=== PATIENT | female | born 1960 | race Caucasian/White ===

== ENCOUNTER → 2017-02-22 | Day surgery (SDC) | payer OTHER ==
[2017-02-13 14:03] VITALS: Ht 152.4 cm; Wt 70.5 kg
[~2017-02-22] VITALS: Ht 152.4 cm; Wt 70.5 kg
[~2017-02-22] MED LIST: ATV/1 PO; BUPIVACAINE/EPINEPHRINE 0.25% 1:200,000 30 ML VIAL ONE; BUPR-79 PO; CALC625T PO; DEXAMETHASONE SOD INJ 4 MG/ML VIAL ONE; EpHEDrine SULFATE INJ 50 MG/ML AMP ONE; EpINEphrine INJ 1MG/ML AMP 1 MG/ML AMP ONE; FENTANYL CITRATE INJ 50 MCG/1 ML 2 ML VIAL ONE; FLUO10CA48 PO; KETO10TA PO; LACTATED RINGER'S 1000ML 1,000 ML IV SCH; LIDOCAINE HCL 2% 2 ML VIAL (20MG/ML) ONE; LORAZEPAM PO; MIDAZOLAM HCL 1 MG/ML 2ML VIAL ONE; OMEP20CA59 PO; OMEP40CA41 PO; ONDANSETRON INJ 2 MG/ML 2 ML VIAL IV PRN; ONDANSETRON INJ 2 MG/ML 2 ML VIAL ONE; OXYC-57 PO; OXYCODONE/ACETAMINOPHEN 5-325 TAB PO PRN; PROPOFOL IV EMULSION 10 MG/ML 20 ML VIAL IV ONE; ROPIVACAINE 0.5% 5 MG/ML 30 ML VIAL ONE; SODIUM CHLORIDE 0.9% 1000ML 1,000 ML IV SCH; SODIUM CHLORIDE 0.9% INJ 10 ML VIAL ONE
[2017-02-22] MEDS: CEFAZOLIN 2000 MG/60 ML D5W IV SCH ×2 (10:40→12:07)
--- NOTE | 2017-02-22 11:25 | History & Physical Bridge - [place] ---
H&P Re-Evaluation Bridge Note: I have examined the patient, reviewed the History & Physical and in the interval since the performance of the History & Physical I have noted the following changes of clinical significance: No changes noted
--- NOTE | 2017-02-22 13:13 | Discharge Instructions-SurgCtr ---
Discharge Instructions Date of Service Feb 22, 2017. Visit Reason for Visit: Shoulder Pain, Full Thickness Rotator Cuff Tear Discharge Discharge Diagnosis / Problem: RIGHT SHOULDER EXTERNAL IMPINGEMENT Discharge Goals Goal(s): Decrease discomfort, Improve function Activity Recommendations Activity Limitations: as noted below Lifting Limitations: until after follow-up appointment Exercise/Sports Limitations: until after follow-up appointment Shower/Bathe: tomorrow Anesthesia . Post Anesthesia Instructions: If you have had General Anesthesia or IV Sedation: * Do not drive today. * Resume driving when surgeon permits. * Do not make important decisions or sign legal documents today. * Call surgeon for: 1. Temperature elevations greater than 101 degrees F. 2. Uncontrollable pain. 3. Excessive bleeding. 4. Persistent nausea and vomiting. 5. Medication intolerance (nausea, vomiting or rash). * For nausea and vomiting use only clear liquids such as: tea, soda, bouillon until nausea subsides, then gradually increase diet as tolerated. * If you have any concerns or questions, call your surgeon's office. If physician is unavailable and it is an emergency, call 911 or go to the nearest emergency room. . Instructions / Follow-Up Instructions / Follow-Up MEDICATIONS: * Resume previous medications unless instructed otherwise by your surgeon. * Always take pain medication on a full stomach or with food to avoid upset stomach. * Do not drink alcohol or drive while taking narcotics. * Ibuprofen or Tylenol may be taken if narcotic not needed. SPECIAL CARE INSTRUCTIONS: __ None _X_ Keep extremity elevated and iced x 48 hours; apply ice 20-30 minutes 8-10 times/day. May remove at night. _X_ Sling (WEAR NEEDED FOR COMFORT) __24 hrs/day __ Remove at night __ Shoulder Immobilizer __ 24 hrs/day __ Remove at night _X_ Dressing __ Maintain until seen in office, may shower with plastic over site _X_ Remove dressings in 24-48 hours and then may shower _X_ Cover incisions with band-aids after showering __ Do not remove steri-strips Call physician if chills or temperature rises above 102 degrees or pain unrelieved by prescribed pain medications at . . Diet Recommendations Home Diet: no limitations Fluid Restriction: None Procedures Procedures Performed: Right Shoulder Arthroscopy, Medium Rotator Cuff Repair, Acromioplasty Pending Studies Studies pending at discharge: no Work Instructions Return To Work: after follow-up Lifting Limitations: NO LIFTING WITH RIGHT ARM Medical Emergencies . Who to Call and When: Medical Emergencies: If at any time you feel your situation is an emergency, please call 911 immediately. . Non-Emergent Contact Non-Emergency issues call your: Primary Care Provider Call Non-Emergent contact if: you have a fever, temperature is above 101.5 . . "Provider Documentation" section prepared by Modesto Edwards. .
[2017-02-22 14:03] VITALS: TEMP 36.3
--- NOTE | 2017-02-22 14:10 | Anesthesia Progress Nt - [facility] ---
Anesthesia Post Op Note Date & Time Feb 22, 2017 at 14:10 Vital Signs Pain Intensity: 0 Vital Signs Past 12 Hours Date Time Temp Pulse Resp B/P (MAP) Pulse Ox O2 Delivery O2 Flow Rate FiO2 02/22/17 14:03 36.3 69 14 116/67 (83) 98 Room Air 02/22/17 13:45 107/75 02/22/17 13:42 36.5 02/22/17 13:41 75 23 100 02/22/17 13:41 75 23 02/22/17 13:40 113/71 02/22/17 13:37 111/75 02/22/17 13:36 75 19 112/ 98 02/22/17 13:36 75 19 02/22/17 13:31 74 21 99 02/22/17 13:31 74 21 02/22/17 13:30 104/73 02/22/17 13:26 81 15 106/80 100 02/22/17 13:26 81 15 02/22/17 13:21 76 19 02/22/17 13:21 76 19 100 02/22/17 13:20 110/78 02/22/17 13:16 76 19 02/22/17 13:16 76 19 101/76 100 02/22/17 13:11 81 14 02/22/17 13:11 81 14 113/71 100 02/22/17 13:10 36.5 78 20 113/71 100 Diffusion Mask 6 02/22/17 12:07 0 02/22/17 12:05 108/71 02/22/17 12:02 73 02/22/17 12:02 73 16 99 02/22/17 12:00 125/82 02/22/17 11:59 124/78 02/22/17 11:57 79 02/22/17 11:57 98 8 100 02/22/17 11:52 68 02/22/17 11:52 68 0 97 02/22/17 11:47 71 02/22/17 11:47 70 0 98 02/22/17 11:42 72 0 99 02/22/17 11:42 72 02/22/17 11:37 65 0 98 02/22/17 11:37 65 02/22/17 11:32 65 0 99 02/22/17 11:32 64 02/22/17 11:27 70 02/22/17 11:27 71 0 98 02/22/17 11:22 67 0 98 02/22/17 11:22 67 02/22/17 11:17 67 02/22/17 11:17 67 0 97 02/22/17 11:12 67 02/22/17 11:12 67 0 98 02/22/17 11:07 69 0 97 02/22/17 11:07 70 02/22/17 11:02 67 02/22/17 11:02 67 0 99 02/22/17 10:57 70 0 98 02/22/17 10:57 70 02/22/17 10:52 69 02/22/17 10:52 68 0 98 02/22/17 10:47 70 02/22/17 10:47 70 0 98 02/22/17 10:42 8 02/22/17 10:42 73 8 02/22/17 10:23 36.8 73 18 113/96 (102) 97 Room Air Notes Mental Status: alert / awake / arousable, participated in evaluation Pt Amnestic to Procedure: Yes Nausea / Vomiting: adequately controlled Pain: adequately controlled Airway Patency, RR, SpO2: stable & adequate BP & HR: stable & adequate Hydration State: stable & adequate Anesthetic Complications: no major complications apparent
[2017-02-22 14:14] VITALS: BP 112/75; PULSE 72; O2SAT 100
--- NOTE | 2017-02-22 15:40 | [facility] Post Operative Brief Note ---
Immediate Operative Summary Operative Date Feb 22, 2017. Pre-Operative Diagnosis Right Shoulder Medium Rotator Cuff Tear Post-Operative Diagnosis Same Procedure(s) Performed Right Shoulder Arthroscopy, Medium Rotator Cuff Repair, Acromioplasty Surgeon Dr. Williamson Plaster Mechanic Surgeon(s) Yobany Edwards PA-C Estimated Blood Loss 5 ml Findings as above Specimens Same Complication(s) None Disposition Recovery Room / PACU
--- NOTE | 2017-02-22 19:25 | OPERATIVE REPORT ---
DATE OF OPERATION: 02/22/2017 PREOPERATIVE DIAGNOSIS: Very high grade partial rotator cuff tear of the right shoulder with severe external impingement. POSTOPERATIVE DIAGNOSIS: Severe external impingement without rotator cuff tear. PROCEDURE: A diagnostic arthroscopy with extensive debridement and acromioplasty. SURGEON: Dr. Paolo Williamson. MEDICAID ANALYST: Aden Edwards PA-C, whose assistance was necessary for positioning the arm and helping with instrumentation. ANESTHESIA: General with a right interscalene nerve block. COMPLICATIONS: None. CONDITION: Stable to PACU. INDICATIONS: Christina is a 56-year-old female who works at [employer]. She states she injured her shoulder while at work. She had an MRI which was a very poor quality MRI, which was suggestive of a very high grade partial thickness rotator cuff tear. She was unable to raise her arm when I saw her in the office and she failed a conservative treatment. She was unable to return to work and elected to proceed with a rotator cuff repair. DESCRIPTION OF PROCEDURE: On 02/22/2017, she arrived at [facility] for the above procedure. She was seen in the preoperative holding area and the operative extremity was identified and signed. She was given a preoperative antibiotic and a right interscalene nerve block. She was taken back to the operating room, laid on the table in supine position and put under general anesthesia. She was then put into the beachchair position. The right shoulder was prepped and draped in sterile fashion. Time-out was done and the patient and operative extremity was properly identified. A scope was introduced in the posterior portal. Diagnostic arthroscopy showed no cartilage damage to the humeral head or the glenoid. The biceps tendon was intact and went through a normal size biceps liz mechanism. The supraspinatus, infraspinatus, teres minor, and subscapularis were all checked and intact. An anterior portal was made. A shaver was used to do a debridement of some of the intraarticular structures and the biceps tendon was pulled into the joint without any evidence of tearing or pathology. The scope was then put into the subacromial space. A lateral portal was made. A shaver was used to do a complete subacromial and subdeltoid bursectomy. There was a lot of red and inflamed bursa. An ablator was used to tease the coracoacromial ligament off the undersurface of the acromion and a 5-0 jeffrey was used to complete an acromioplasty of a large Bigliani type 3 acromion. A shaver was used to remove any excess debris and the bursal side of the rotator cuff was examined extensively without evidence of tear. The distal clavicle was also visualized and it did not appear to be arthritic. Time was spent with surgery for any additional pathology and probing the rotator cuff to ensure there were no interstitial tears. No tears of the rotator cuff found. Arthroscopic instruments were removed from the shoulder. Portal sites were closed with 3-0 nylon. She was then placed in a soft dressing and regular arm sling. She was then extubated, transferred to a [facility] and taken to the postanesthesia care unit in stable condition. She tolerated the procedure well. I attest to the content of the Intraoperative Record and any orders documented therein. Any exception s are noted below.
== END | disposition home or self-care (01) ==
LOC: X.SURG 09:59
PROVIDERS: ATTEND Orthopaedic Surgery
DX: M25.811 Other specified joint disorders, right shoulder (principal); Z82.49 Family history of ischemic heart disease and other diseases of the circulatory system; Z83.3 Family history of diabetes mellitus

== ENCOUNTER → 2017-05-10 | Day surgery (SDC) | payer OTHER, BC ==
[2017-05-08 11:23] VITALS: Ht 152.4 cm; Wt 77.3 kg
[~2017-05-10] VITALS: Ht 152.4 cm; Wt 77.3 kg
[~2017-05-10] MED LIST changes: +ATROPINE SULFATE 0.1 MG/ML 5ML SYR IV PRN; +BUPIVACAINE 0.5 % 5 MG/1 ML MPF 30ML VIAL ONE; +BUPIVACAINE 0.5 % 5 MG/1 ML PF 10ML VIAL ONE; -BUPIVACAINE/EPINEPHRINE 0.25% 1:200,000 30 ML VIAL ONE; -DEXAMETHASONE SOD INJ 4 MG/ML VIAL ONE; +EpHEDrine SULFATE INJ 50 MG/ML AMP IV PRN; -EpHEDrine SULFATE INJ 50 MG/ML AMP ONE; -EpINEphrine INJ 1MG/ML AMP 1 MG/ML AMP ONE; +FENTANYL CITRATE INJ 50 MCG/1 ML 2 ML VIAL IV PRN; +HYDROCODONE/ACETAMOPHEN 5/325MG TAB PO PRN; -KETO10TA PO; -LORAZEPAM PO; +METHYLPREDNISOLONE ACETATE 80 MG/ML VIAL ONE; -OMEP20CA59 PO; -ONDANSETRON INJ 2 MG/ML 2 ML VIAL ONE; -OXYCODONE/ACETAMINOPHEN 5-325 TAB PO PRN; -SODIUM CHLORIDE 0.9% INJ 10 ML VIAL ONE
--- NOTE | 2017-05-10 15:46 | Discharge Instructions-SurgCtr ---
Discharge Instructions Date of Service May 10, 2017. Visit Reason for Visit: Right Shoulder Adhesive Capsulitis, Pain Discharge Discharge Diagnosis / Problem: SAME ABOVE Discharge Goals Goal(s): Decrease discomfort, Improve function Activity Recommendations Activity Limitations: as noted below Lifting Limitations: gradually increase as tolerated Exercise/Sports Limitations: gradually increase as tolerated Shower/Bathe: tomorrow Anesthesia . Post Anesthesia Instructions: If you have had General Anesthesia or IV Sedation: * Do not drive today. * Resume driving when surgeon permits. * Do not make important decisions or sign legal documents today. * Call surgeon for: 1. Temperature elevations greater than 101 degrees F. 2. Uncontrollable pain. 3. Excessive bleeding. 4. Persistent nausea and vomiting. 5. Medication intolerance (nausea, vomiting or rash). * For nausea and vomiting use only clear liquids such as: tea, soda, bouillon until nausea subsides, then gradually increase diet as tolerated. * If you have any concerns or questions, call your surgeon's office. If physician is unavailable and it is an emergency, call 911 or go to the nearest emergency room. . Instructions / Follow-Up Instructions / Follow-Up MEDICATIONS: * Resume previous medications unless instructed otherwise by your surgeon. * Always take pain medication on a full stomach or with food to avoid upset stomach. * Do not drink alcohol or drive while taking narcotics. * Ibuprofen or Tylenol may be taken if narcotic not needed. SPECIAL CARE INSTRUCTIONS: __ None _X_ Keep extremity elevated and iced x 48 hours; apply ice 20-30 minutes 8-10 times/day. May remove at night. _X_ Sling (REMOVE AFTER 24 HOURS) __24 hrs/day __ Remove at night __ Shoulder Immobilizer __ 24 hrs/day __ Remove at night __ Dressing __ Maintain until seen in office, may shower with plastic over site __ Remove dressings in 24-48 hours and then may shower __ Cover incisions with band-aids after showering __ Do not remove steri-strips Call physician if chills or temperature rises above 102 degrees or pain unrelieved by prescribed pain medications at . . Diet Recommendations Home Diet: no limitations Fluid Restriction: None Pending Studies Studies pending at discharge: no Work Instructions Return To Work: 3 days (WHEN PAIN IS CONTROLLED ) Medical Emergencies . Who to Call and When: Medical Emergencies: If at any time you feel your situation is an emergency, please call 911 immediately. . Non-Emergent Contact Non-Emergency issues call your: Primary Care Provider Call Non-Emergent contact if: you have a fever, temperature is above 101.5 . . "Provider Documentation" section prepared by Modesto Edwards. .
[2017-05-10 15:59] VITALS: TEMP 37.4
--- NOTE | 2017-05-10 16:14 | [facility] Post Operative Brief Note ---
Immediate Operative Summary Operative Date May 10, 2017. Pre-Operative Diagnosis Right Shoulder Adhesive Capsulitis, Pain Post-Operative Diagnosis same Procedure(s) Performed Right Shoulder Manipulation Under Anesthesia Surgeon Dr. Andrzej Williamson Tread Cutter Surgeon(s) 0 Estimated Blood Loss 0 Findings as above Specimens none Complication(s) None Disposition Recovery Room / PACU
--- NOTE | 2017-05-10 16:34 | Anesthesia Progress Nt - [facility] ---
Anesthesia Post Op Note Date & Time May 10, 2017 at 16:33 Vital Signs Pain Intensity: 6.0 Vital Signs Past 12 Hours Date Time Temp Pulse Resp B/P (MAP) Pulse Ox O2 Delivery O2 Flow Rate FiO2 05/10/17 15:59 37.4 83 14 93/68 (76) 97 Room Air 05/10/17 15:38 14 05/10/17 15:36 122/77 05/10/17 15:33 82 18 100 05/10/17 15:33 81 05/10/17 15:31 126/71 05/10/17 15:28 79 05/10/17 15:28 79 16 100 05/10/17 15:27 79 05/10/17 15:27 78 16 100 05/10/17 15:26 126/75 05/10/17 15:22 78 18 100 05/10/17 15:22 79 05/10/17 15:21 127/76 05/10/17 15:18 81 05/10/17 15:18 82 18 100 05/10/17 15:16 120/75 05/10/17 15:13 79 17 100 05/10/17 15:13 79 05/10/17 15:12 80 05/10/17 15:12 80 20 100 05/10/17 15:11 122/75 05/10/17 15:07 79 17 100 05/10/17 15:07 79 05/10/17 15:06 115/72 05/10/17 15:02 80 05/10/17 15:02 81 16 100 05/10/17 15:01 112/73 05/10/17 14:59 77 18 100 05/10/17 14:59 77 05/10/17 14:58 82 05/10/17 14:58 82 21 100 05/10/17 14:56 127/74 05/10/17 14:53 81 05/10/17 14:53 81 18 100 05/10/17 14:52 79 05/10/17 14:52 80 20 100 05/10/17 14:51 117/76 05/10/17 14:48 79 22 100 05/10/17 14:48 79 05/10/17 14:47 80 25 100 05/10/17 14:47 78 05/10/17 14:46 131/77 05/10/17 14:43 77 17 100 05/10/17 14:43 78 05/10/17 14:42 144/79 05/10/17 14:38 80 05/10/17 14:38 82 0 99 05/10/17 14:33 77 0 97 05/10/17 14:33 77 05/10/17 14:28 74 0 97 05/10/17 14:28 74 05/10/17 14:23 79 0 99 05/10/17 14:23 76 05/10/17 14:18 77 05/10/17 14:18 77 0 98 05/10/17 14:13 75 05/10/17 14:13 75 0 98 05/10/17 14:08 73 05/10/17 14:08 74 0 98 05/10/17 14:03 71 0 98 05/10/17 14:03 72 05/10/17 13:58 71 0 100 05/10/17 13:58 71 05/10/17 13:53 71 99 05/10/17 13:53 71 05/10/17 13:48 72 0 98 05/10/17 13:48 73 05/10/17 13:43 73 05/10/17 13:43 73 0 99 05/10/17 13:38 71 0 99 05/10/17 13:38 71 05/10/17 12:43 36.5 70 16 128/79 (95) 99 Room Air Notes Mental Status: alert / awake / arousable, participated in evaluation Pt Amnestic to Procedure: Yes Nausea / Vomiting: adequately controlled Pain: adequately controlled Airway Patency, RR, SpO2: stable & adequate BP & HR: stable & adequate Hydration State: stable & adequate Anesthetic Complications: no major complications apparent
[2017-05-10 16:38] VITALS: BP 122/77; PULSE 70; O2SAT 96
--- NOTE | 2017-05-10 18:12 | OPERATIVE REPORT ---
DATE OF OPERATION: 05/10/2017 PREOPERATIVE DIAGNOSIS: Postoperative adhesive capsulitis of the right shoulder. POSTOPERATIVE DIAGNOSIS: Same. PROCEDURE: Manipulation under anesthesia of the right shoulder. SURGEON: Dr. Paolo Williamson. MANAGER STORE: None. ANESTHESIA: Sedation with a right interscalene nerve block. COMPLICATIONS: None. CONDITION: Stable to PACU. INDICATIONS: Christina is a very pleasant 57-year-old female who underwent a decompression about 6 weeks ago. Unfortunately, postoperatively she has been very tight with her shoulder. It is very painful. I diagnosed her clinically with postoperative adhesive capsulitis and she elected to proceed with manipulation under anesthesia. DESCRIPTION OF PROCEDURE: On 05/10/[address] [facility] for the above procedure. She was seen in the preoperative holding area and the operative extremity was identified and signed. She was given a right interscalene block, taken back to the operating room, laid on the table in supine position and put under basic sedation. A time-out was done and the patient and operative extremity was properly identified. On preoperative physical examination, she only had about 45 degrees of abduction, 30 degrees of external rotation, 0 degrees of internal rotation. A gentle manipulation was done under anesthesia. I was able to get full abduction, external and internal rotation. I was able to get full range of motion of her shoulder. The glenohumeral joint was then injected with 80 mg of Depo-Medrol and 5 mL of Marcaine. She was then placed in an arm sling and taken to the postanesthesia care unit in stable condition. She tolerated the procedure well. I attest to the content of the Intraoperative Record and any orders documented therein. Any exception s are noted below.
== END | disposition home or self-care (01) ==
LOC: X.SURG 12:33
PROVIDERS: ATTEND Orthopaedic Surgery
DX: M75.01 Adhesive capsulitis of right shoulder (principal); Z98.890 Other specified postprocedural states

== ENCOUNTER → 2017-09-05 | Outpatient (CLI) | payer OTHER, BC ==
[~2017-09-05] MED LIST changes: -ATROPINE SULFATE 0.1 MG/ML 5ML SYR IV PRN; -BUPIVACAINE 0.5 % 5 MG/1 ML MPF 30ML VIAL ONE; -BUPIVACAINE 0.5 % 5 MG/1 ML PF 10ML VIAL ONE; -EpHEDrine SULFATE INJ 50 MG/ML AMP IV PRN; -FENTANYL CITRATE INJ 50 MCG/1 ML 2 ML VIAL IV PRN; -FENTANYL CITRATE INJ 50 MCG/1 ML 2 ML VIAL ONE; -HYDROCODONE/ACETAMOPHEN 5/325MG TAB PO PRN; -LACTATED RINGER'S 1000ML 1,000 ML IV SCH; -LIDOCAINE HCL 2% 2 ML VIAL (20MG/ML) ONE; -METHYLPREDNISOLONE ACETATE 80 MG/ML VIAL ONE; -MIDAZOLAM HCL 1 MG/ML 2ML VIAL ONE; -ONDANSETRON INJ 2 MG/ML 2 ML VIAL IV PRN; -PROPOFOL IV EMULSION 10 MG/ML 20 ML VIAL IV ONE; -ROPIVACAINE 0.5% 5 MG/ML 30 ML VIAL ONE; -SODIUM CHLORIDE 0.9% 1000ML 1,000 ML IV SCH
[2017-09-05 17:34] LABS: BASO % 0.5 %; BASO ABS # 0.04 K/uL (0-0.2); EOS % 1.9 %; EOS ABS # 0.15 K/uL (0-0.5); HEMOGLOBIN 12.5 g/dL (12.0-16.0); IG# 0.01 K/uL (0.00-0.02); LYMPH ABS # 1.94 K/uL (1.2-3.4); MEAN CORPUSCULAR HEMOGLOBIN 31.3 pg (25-34); MEAN CORPUSCULAR HGB CONC 32.9 g/dl (32-36); MEAN PLATELET VOLUME 11.1 fL (7.4-10.4); MONO % 9.7 %; MONO ABS # 0.75 K/uL (0.11-0.59); NEUT % 62.8 %; NEUT ABS # 4.88 K/uL (1.4-6.5); PLATELET COUNT 261 K/uL (130-400); RED CELL DISTRIBUTION WIDTH CV 14.2 % (11.5-14.5); RED CELL DISTRIBUTION WIDTH SD 49.4 fL (36.4-46.3); WHITE BLOOD COUNT 7.77 K/uL (4.8-10.8)
[2017-09-05 18:09] LABS: BLOOD UREA NITROGEN 15 mg/dl (7-18); CALCIUM 8.5 mg/dl (8.5-10.1); CARBON DIOXIDE 25 mmol/L (21-32); CREATININE 0.86 mg/dl (0.60-1.20); GLUCOSE 96 mg/dl (70-99); SODIUM 137 mmol/L (136-145)
== END | disposition home or self-care (01) ==
LOC: C.LABBC 15:34
PROVIDERS: ATTEND Orthopaedic Surgery
DX: M75.01 Adhesive capsulitis of right shoulder (principal)

== ENCOUNTER → 2017-09-13 | Day surgery (SDC) | payer OTHER, BC ==
[2017-09-12 13:59] VITALS: Ht 152.4 cm; Wt 75.0 kg
[~2017-09-13] VITALS: Ht 152.4 cm; Wt 75.0 kg
[~2017-09-13] MED LIST changes: +ATROPINE SULFATE 0.1 MG/ML 5ML SYR IV PRN; +BUPIVACAINE 0.5 % 5 MG/1 ML PF 10ML VIAL ONE; +BUPIVACAINE/EPINEPHRINE 0.25% 1:200,000 30 ML VIAL ONE; +EpHEDrine SULFATE INJ 50 MG/ML AMP IV PRN; +FENTANYL CITRATE INJ 50 MCG/1 ML 2 ML VIAL IV PRN; +FENTANYL CITRATE INJ 50 MCG/1 ML 2 ML VIAL ONE; +LACTATED RINGER'S 1000ML 1,000 ML IV SCH; +LIDOCAINE HCL 2% 2 ML VIAL (20MG/ML) ONE; +METHYLPREDNISOLONE ACETATE 80 MG/ML VIAL ONE; +MIDAZOLAM HCL 1 MG/ML 2ML VIAL ONE; +ONDANSETRON INJ 2 MG/ML 2 ML VIAL IV PRN; +OXYCODONE/ACETAMINOPHEN 5-325 TAB PO PRN; +PROPOFOL IV EMULSION 10 MG/ML 20 ML VIAL IV ONE; +ROPIVACAINE 0.5% 5 MG/ML 30 ML VIAL ONE; +SODIUM CHLORIDE 0.9% 1000ML 1,000 ML IV SCH
--- NOTE | 2017-09-13 08:13 | [facility] Post Operative Brief Note ---
Immediate Operative Summary Operative Date Sep 13, 2017. Pre-Operative Diagnosis Right shoulder adhesive capsulitis Post-Operative Diagnosis Same as preop Procedure(s) Performed Right Shoulder Manipulation Under Anesthesia Surgeon Dr. Williamson Stenographer Secretary Surgeon(s) Modesto Edwards PA-C Estimated Blood Loss 0 mL Findings as above Specimens None Complication(s) None Disposition Recovery Room / PACU
--- NOTE | 2017-09-13 08:18 | Discharge Instructions-SurgCtr ---
Discharge Instructions Date of Service Sep 13, 2017. Visit Reason for Visit: Right Shoulder Adhesive Capsulitis Discharge Discharge Diagnosis / Problem: SAME ABOVE Discharge Goals Goal(s): Decrease discomfort, Improve function Activity Recommendations Activity Limitations: as noted below Lifting Limitations: gradually increase as tolerated Exercise/Sports Limitations: gradually increase as tolerated Anesthesia . Post Anesthesia Instructions: If you have had General Anesthesia or IV Sedation: * Do not drive today. * Resume driving when surgeon permits. * Do not make important decisions or sign legal documents today. * Call surgeon for: 1. Temperature elevations greater than 101 degrees F. 2. Uncontrollable pain. 3. Excessive bleeding. 4. Persistent nausea and vomiting. 5. Medication intolerance (nausea, vomiting or rash). * For nausea and vomiting use only clear liquids such as: tea, soda, bouillon until nausea subsides, then gradually increase diet as tolerated. * If you have any concerns or questions, call your surgeon's office. If physician is unavailable and it is an emergency, call 911 or go to the nearest emergency room. . Instructions / Follow-Up Instructions / Follow-Up MEDICATIONS: * Resume previous medications unless instructed otherwise by your surgeon. * Always take pain medication on a full stomach or with food to avoid upset stomach. * Do not drink alcohol or drive while taking narcotics. * Ibuprofen or Tylenol may be taken if narcotic not needed. SPECIAL CARE INSTRUCTIONS: __ None _X_ Keep extremity elevated and iced x 48 hours; apply ice 20-30 minutes 8-10 times/day. May remove at night. _X_ Sling (REMOVE THE SLING AFTER 24 HOURS) __24 hrs/day __ Remove at night __ Shoulder Immobilizer __ 24 hrs/day __ Remove at night __ Dressing __ Maintain until seen in office, may shower with plastic over site __ Remove dressings in 24-48 hours and then may shower __ Cover incisions with band-aids after showering __ Do not remove steri-strips Call physician if chills or temperature rises above 102 degrees or pain unrelieved by prescribed pain medications at . . Diet Recommendations Home Diet: no limitations Fluid Restriction: None Procedures Procedures Performed: Right Shoulder Manipulation Under Anesthesia Pending Studies Studies pending at discharge: no Work Instructions Return To Work: 5 days (OR SOONER IF PAIN IS CONTROLLED ) Medical Emergencies . Who to Call and When: Medical Emergencies: If at any time you feel your situation is an emergency, please call 911 immediately. . Non-Emergent Contact Non-Emergency issues call your: Primary Care Provider Call Non-Emergent contact if: you have a fever, temperature is above 101.5 . . "Provider Documentation" section prepared by Modesto Edwards. .
--- NOTE | 2017-09-13 08:35 | OPERATIVE REPORT ---
DATE OF OPERATION: 09/13/2017 PREOPERATIVE DIAGNOSIS: Postoperative adhesive capsulitis of the right shoulder. POSTOPERATIVE DIAGNOSIS: Same. PROCEDURE: Manipulation under anesthesia of the right shoulder. SURGEON: Paolo Williamson DO. BILINGUAL ACCOUNT MANAGER: None. ANESTHESIA: General with a right interscalene nerve block. COMPLICATIONS: None. CONDITION: Stable to PACU. INDICATIONS: Christina is a 57-year-old female who works at [employer]. She initially hurt her right shoulder about 8 months ago. MRI was poor quality MRI which showed a cuff tear. I took her to the operating room in February of 2017 and there was no tear of the rotator cuff. I did a decompression. Unfortunately, postoperatively, she went on to develop adhesive capsulitis. I did a manipulation under anesthesia of her shoulder back in May 2017. Initially, she did better, but unfortunately her shoulder symptoms worsened. She still has a lot of shoulder pain. Her motion was better than before the manipulation but it was still not full motion. She was 4 month out. She was having trouble sleeping at night. She elected to go ahead and repeat manipulation under anesthesia. DESCRIPTION OF PROCEDURE: On 09/13/2017, she arrived at [facility] for the above procedure. She was seen in the preoperative holding area and the operative extremity was identified and signed. She was given a right interscalene nerve block. She was taken back to the operating room, laid on the table in supine position and given a general anesthetic. A time-out was done and the patient and operative extremity was properly identified. A manipulation was done of her shoulder. I got a little pop and was able to get full range of motion of her shoulder. It was very minimal. She had fairly good range of motion and it was just at very end range and I was able full range of motion of her shoulder. After the procedure, I gave her an intraarticular injection of 80 mg of Depo-Medrol and 5 mL of Marcaine. She was then taken to the postanesthesia care unit in stable condition. She tolerated the procedure well. I attest to the content of the Intraoperative Record and any orders documented therein. Any exception s are noted below.
[2017-09-13 09:11] VITALS: TEMP 36.5
--- NOTE | 2017-09-13 09:25 | Anesthesia Progress Nt - [facility] ---
Anesthesia Post Op Note Date & Time Sep 13, 2017 at 09:25 Vital Signs Pain Intensity: 0 Vital Signs Past 12 Hours Date Time Temp Pulse Resp B/P (MAP) Pulse Ox O2 Delivery O2 Flow Rate FiO2 09/13/17 09:11 36.5 69 18 103/64 (77) 96 Room Air 09/13/17 08:40 36.4 106/72 09/13/17 08:39 72 17 95 09/13/17 08:39 72 17 09/13/17 08:35 108/66 09/13/17 08:34 72 19 09/13/17 08:34 72 19 96 09/13/17 08:30 103/73 09/13/17 08:29 75 19 09/13/17 08:29 74 19 99 09/13/17 08:25 105/74 09/13/17 08:24 76 18 98 09/13/17 08:24 76 18 09/13/17 08:20 106/69 09/13/17 08:19 79 19 99 09/13/17 08:19 79 19 09/13/17 08:17 36.6 81 20 102/70 98 Mask 5 09/13/17 08:16 102/70 09/13/17 07:59 78 09/13/17 07:59 75 24 100 09/13/17 07:58 75 12 100 09/13/17 07:58 74 09/13/17 07:55 98/58 09/13/17 07:53 80 09/13/17 07:53 80 33 100 09/13/17 07:50 107/68 09/13/17 07:48 78 09/13/17 07:48 78 17 100 09/13/17 07:45 120/66 09/13/17 07:43 79 09/13/17 07:43 80 21 100 09/13/17 07:39 107/68 09/13/17 07:39 70 20 107/68 (81) 100 Mask 5 09/13/17 07:38 72 09/13/17 07:38 73 13 100 09/13/17 07:33 73 09/13/17 07:33 73 98 09/13/17 07:28 71 97 09/13/17 07:28 72 09/13/17 07:23 70 98 09/13/17 07:23 70 09/13/17 07:18 67 98 09/13/17 07:18 67 09/13/17 07:13 67 98 09/13/17 07:13 67 09/13/17 07:08 69 98 09/13/17 07:08 69 09/13/17 07:03 68 98 09/13/17 07:03 69 09/13/17 06:58 73 09/13/17 06:58 73 99 09/13/17 06:37 36.9 68 18 132/80 (97) 99 Room Air Notes Mental Status: alert / awake / arousable, participated in evaluation Pt Amnestic to Procedure: Yes Nausea / Vomiting: adequately controlled Pain: adequately controlled Airway Patency, RR, SpO2: stable & adequate BP & HR: stable & adequate Hydration State: stable & adequate Anesthetic Complications: no major complications apparent
[2017-09-13 09:45] VITALS: BP 116/80; PULSE 70; O2SAT 98
== END | disposition home or self-care (01) ==
LOC: X.SURG 06:07
PROVIDERS: ATTEND Orthopaedic Surgery
DX: M75.01 Adhesive capsulitis of right shoulder (principal); K21.9 Gastro-esophageal reflux disease without esophagitis; F41.9 Anxiety disorder, unspecified; Z79.899 Other long term (current) drug therapy

== ENCOUNTER → 2017-10-31 | Outpatient (CLI) | payer OTHER, BC ==
[~2017-10-31] MED LIST changes: -ATROPINE SULFATE 0.1 MG/ML 5ML SYR IV PRN; -BUPIVACAINE 0.5 % 5 MG/1 ML PF 10ML VIAL ONE; -BUPIVACAINE/EPINEPHRINE 0.25% 1:200,000 30 ML VIAL ONE; -EpHEDrine SULFATE INJ 50 MG/ML AMP IV PRN; -FENTANYL CITRATE INJ 50 MCG/1 ML 2 ML VIAL IV PRN; -FENTANYL CITRATE INJ 50 MCG/1 ML 2 ML VIAL ONE; -LACTATED RINGER'S 1000ML 1,000 ML IV SCH; -LIDOCAINE HCL 2% 2 ML VIAL (20MG/ML) ONE; -METHYLPREDNISOLONE ACETATE 80 MG/ML VIAL ONE; -MIDAZOLAM HCL 1 MG/ML 2ML VIAL ONE; -ONDANSETRON INJ 2 MG/ML 2 ML VIAL IV PRN; -OXYCODONE/ACETAMINOPHEN 5-325 TAB PO PRN; -PROPOFOL IV EMULSION 10 MG/ML 20 ML VIAL IV ONE; -ROPIVACAINE 0.5% 5 MG/ML 30 ML VIAL ONE; -SODIUM CHLORIDE 0.9% 1000ML 1,000 ML IV SCH
--- NOTE | 2017-10-31 08:28 | DIAGNOSTIC IMAGING REPORT ---
R UPPER EXT JOINT WITHOUT CLINICAL HISTORY: RT SHOULDER,ADHESIVE CAPSULITIS pain TECHNIQUE: MRI multi axial acquisition COMPARISON STUDY: 01/30/2017 [place] FINDINGS: Signal characteristics of the osseous structures are unremarkable. There are mild hypertrophic changes of acromioclavicular joint. There is no significant impingement. Structures the rotator cuff appear intact. No evidence for rotator cuff tear. Biceps tendon is intact within the bicipital groove. Glenoid labrum is unremarkable. No significant joint effusion. No evidence for subdeltoid fluid collections. Multiple surgical sutures superior to the shoulder and supraspinatus tendon. IMPRESSION: 1. Mild post operative soft tissue changes superior to the supraspinatus tendon and subdeltoid bursa. 2. No acute abnormality of the right shoulder. 3. No evidence for rotator cuff tear. 4. Mild degenerative hypertrophic change of the acromioclavicular joint with no significant impingement. The above report was generated using voice recognition software. It may contain grammatical, syntax or spelling errors. Electronically signed by: Jose Muñiz M.D. 10/31/2017 8:27 AM Dictated Date/Time: 10/31/2017 8:21 AM
== END | disposition home or self-care (01) ==
LOC: C.MRI 07:25
PROVIDERS: ATTEND Orthopaedic Surgery
DX: M75.01 Adhesive capsulitis of right shoulder (principal)